=== PATIENT | male | born 2000 | race Caucasian/White ===

== ENCOUNTER 2021-04-15 02:33 | Emergency (ER) | payer BC, MEDICAID ==
[~2021-04-15] VITALS: Ht 170.2 cm; Wt 68.0 kg
[2021-04-15 03:17] VITALS: BP 137/90
== END 2021-04-15 03:55 | disposition home or self-care (01) ==
LOC: ER 02:34
DX: F10.129 Alcohol abuse with intoxication, unspecified (principal); F19.929 Other psychoactive substance use, unspecified with intoxication, unspecified; F17.200 Nicotine dependence, unspecified, uncomplicated; Z72.89 Other problems related to lifestyle; Y90.9 Presence of alcohol in blood, level not specified
CPT/HCPCS: 99281